=== PATIENT | female | born 1985 | race Two or more races ===

== ENCOUNTER → 2025-08-03 | Emergency (ER) | payer OTHER ==
[~2025-08-03] VITALS: Ht 170.2 cm; Wt 70.8 kg
[~2025-08-03] MED LIST: AMOX-CLAV 875-1 EACH PO; DIPHTH,PERTUSS(ACELL),TET VAC 0.5 ML SYRINGE IM ONE; TETANUS & DIPHTHERIA TOX,ADULT 0.5 ML VIAL IM ONE
== END | disposition home or self-care (01) ==
LOC: ER 09:54
DX: S81.852A Open bite, left lower leg, initial encounter (principal); W54.0XXA Bitten by dog, initial encounter; Y93.89 Activity, other specified; Y92.89 Other specified places as the place of occurrence of the external cause; Y99.8 Other external cause status
CPT/HCPCS: 73590; 90471; 90714; J1670